=== PATIENT | male | born 1995 | race Two or more races ===

== ENCOUNTER 2019-03-11 09:29 | Observation (INO) ==
[2019-03-11] MEDS ORDERED: PIPERACILL/TAZOBAC CONSULT ACTIVE PRN ×2 (09:54→16:15)
[2019-03-11] MEDS ORDERED: PIPERACILLIN/TAZOBACTAM 3.375 GM/115 ML BAG IV STA (09:54)
[2019-03-11] MEDS ORDERED: SODIUM CHLORIDE 0.9% 1000ML 1,000 ML IV SCH (10:00)
[2019-03-11 10:25] LABS: Basophils # (auto) 0.02 K/uL (0-0.2); Basophils % (auto) 0.2 %; Eosinophils % (auto) 2.1 %; Hematocrit (blood only) 44.8 % (42-52); Hemoglobin 14.9 g/dL (14.0-18.0); Immature Granulocytes # (auto) 0.01 K/uL (0.00-0.02); Immature Granulocytes % (auto) 0.1 %; Lymphocytes # (auto) 1.58 K/uL (1.2-3.4); Lymphocytes % (auto) 16.8 %; Mean Corpuscular Hgb Conc 33.3 g/dL (32-36); Mean Corpuscular Volume 93.3 fL (80-100); Mean Platelet Volume 10.6 fL (7.4-10.4); Monocytes # (auto) 0.81 K/uL (0.11-0.59); Monocytes % (auto) 8.6 %; Neutrophils % (auto) 72.2 %; Platelet Count 226 K/uL (130-400); RDW Coefficient of Variation 12.5 % (11.5-14.5); RDW Standard Deviation 42.6 fL (36.4-46.3); White Blood Count 9.42 K/uL (4.8-10.8)
[2019-03-11 10:35] LABS: iSTAT Creatinine 0.7 mg/dl (0.6-1.3); iSTAT Ionized Calcium 1.11 mmol/l (1.12-1.32); iSTAT Potassium 3.8 mEq/L (3.3-5.0)
[2019-03-11] MEDS ORDERED: IOVERSOL 100ml IV PRN (10:35)
[2019-03-11 10:41] LABS: Albumin Level 3.9 gm/dl (3.4-5.0); BUN Creatinine Ratio 12.6 (10-20); C Reactive Protein 1.96 mg/dl (0-0.29); Calcium 8.9 mg/dl (8.5-10.1); Creatinine Clr Calc Pharmacy 177.3 ml/min; Est GFR (African American) 142.3; Est GFR (Non-African American) 122.8; Potassium 3.8 mmol/L (3.5-5.1)
[2019-03-11 10:44] LABS: Albumin Globulin Ratio 0.9 (0.9-2); Bilirubin,Total 1.2 mg/dl (0.2-1); Globulin 4.2 gm/dl (2.5-4.0); Total Protein 8.1 gm/dl (6.4-8.2)
--- NOTE | 2019-03-11 11:33 | CT Scan Report ---
CT SCAN OF THE PELVIS WITH IV CONTRAST CLINICAL HISTORY: Perineal abscess. COMPARISON STUDY: No priors. TECHNIQUE: Following the IV administration of 94 mL of Optiray 320, CT scan of the pelvis is performe d from the pelvic inlet to the proximal femora. Images are reviewed in the axial, sagittal, and coron al planes. IV contrast was administered without complication. A dose lowering technique was utilized adhering to the principles of ALARA. CT DOSE: 1244.41 mGy.cm FINDINGS: The perianal soft tissues are normal in appearance. There is soft tissue induration with dermal thick ening and mild inflammation identified along the inferior left buttock seen on image #934. This is lo cated along the inferior aspect of the gluteal crease. There is a small gas collection at this site w hich measures 2.2 x 1.4 cm. This is consistent with a small abscess. Additionally, there is a periphe rally enhancing thick-walled fluid collection along the inferior perineal soft tissues in the midline . This is seen on image #883 and measures 2.9 x 4.1 x 1.6 cm. There is mild surrounding inflammatory change, and this is also typical in appearance for abscess. No subcutaneous emphysema is identified. The bladder, prostate, and seminal vesicles are normal in appearance. There is no pelvic sidewall caitlyn nopathy. There are mildly enlarged left inguinal lymph nodes which measure up to 1.3 cm in short axis . Minimal stranding is noted in the left groin. There is no free fluid in the pelvis. The visualized loops of small bowel and colon are normal in caliber. A normal appendix is identified. There is a fat -containing umbilical hernia. The iliac vessels are patent. The bony pelvis is intact. No lytic or blastic lesion is seen. The hip and sacroiliac joints are norm al in appearance. The regional musculature is normal and symmetric. IMPRESSION: 1. There is a 4.1 cm peripherally enhancing fluid collection involving the inferior perineal soft tis sues in the midline. The appearance is typical for a small abscess. 2. There is a second small abscess identified in the inferior left buttock along the gluteal crease w ith evidence of surrounding cellulitis. 3. Mildly enlarged left inguinal lymph nodes with surrounding stranding are likely on a reactive basi s. 4. The perianal soft tissues are normal as imaged. Dictated: 03/11/2019 10:57 AM Transcribed: 03/11/2019 11:29 AM Sapna [id number] [email or web address] Electronically signed by: Anthony Patton M.D. 03/11/2019 11:32 AM
[2019-03-11 12:16] LABS: Appearance Urine Clear (Clear); Bilirubin Urine Negative (Negative); Blood Urine Negative (Negative); Color Urine Yellow; Glucose Urine UA Negative (Negative); Ketones Urine Negative (Negative); Leukocyte Esterase Urine Negative (Negative); Nitrite Urine Negative (Negative); Protein Urine Negative (Negative); Specific Gravity Urine > 1.045 (1.000-1.030); Urobilinogen Urine Negative (Negative)
--- NOTE | 2019-03-11 12:54 | History & Physical Report ---
Date of Service March 11, 2019 Assessment & Plan (1) Perineal abscess: Plan for EUA, I&D of perineal abscess. He has been NPO since last night. History of Present Illness Primary Care Provider: NO PCP 23 y/o male with 2-3 days perineal pain and scrotal swelling with some chills and feverish last night. Was referred to the ED by urgent care. No previous perineal abscesses, IBD or rectal pain. Allergies Allergy/AdvReac Type Severity Reaction Status Date / Time No Known Allergies Allergy Unverified 03/11/19 10:57 Home Medications Home Medications Medication Instructions Recorded Confirmed Type No Known Home Medications 03/11/19 03/11/19 History Past Med/Surg History Social History Feels Safe at Home: Yes Review of Systems Constitutional: + fever and + chills Gastrointestinal: no abdominal pain, no nausea, no vomiting, no change in bowel habits, no change in stools, no constipation, no diarrhea/loose stools and no blood in stools Physical Exam Constitutional: WD/WN, vitals as above Respiratory: normal respiratory effort, lungs clear to auscultation Cardiovascular: RRR, no murmur, no edema Gastrointestinal (Abdomen): Percussion/Palpation: abdomen soft Rectal Exam: + rectal tenderness ( 2x4 cm fluctuant extedning from perianal to scrotal area just left of midl) Results & Data Vital Signs (Past 12 Hours) Vital Signs Temp Pulse Pulse Resp BP BP Pulse Ox 03/11/19 11:41 86 18 109/73 100 03/11/19 11:01 78 16 121/73 99 03/11/19 09:36 36.5 C 104 H 20 146/86 H 96 Supervising Physician Co-Signing Physician Notes This pleasant young gentleman approximate 4 days ago while skating fell on ice skate and developed a lump in the area that progressively got worse he denies any history of GI symptoms his bowels have been more regularly On exam he has approximately 3 cm so hard mass consisting most likely with a hematoma in the upper inner thigh then he has a linear 1 x 4 cm very tender soft tissue mass near the groin crease at the base of the scrotum Recommendation is to examine under anesthesia and incision and drainage of these areas This is very atypical for a primary perianal abscess may be all related to the trauma he does not have GI or symptoms PG Care Time/CCT Total # of Minutes Spent Total Time Spent with Patient: Total time spent is greater than 50% in coordination of care (as documented) at patient's floor/unit and/or counseling patient:
--- NOTE | 2019-03-11 13:08 | Emergency Department Note ---
History of Present Illness General Chief complaint: Rectal Pain Stated complaint: PAINFUL BUMP ON BUTT Source: patient Mode of arrival: ambulatory Limitations: no limitations History of Present Illness Provider Complaint: + abscess/boil Onset (ago): 5 day(s) Tetanus up to date: yes Location: + buttocks and + genitals Severity: moderate Maximum Pain Intensity: 4 Current Pain Intensity: 4 Quality: + sharp Pain Consistency: + constant Exacerbated By: + palpation and + movement Context: + none Associated symptoms: + chills, + nausea and + malaise Treatments prior to arrival: + none HPI narrative: This 23-year-old male patient presents emergency department today, ambulatory, complaining of what he thought to be a pimple on his perineum. He states 4 to 5 days ago, he noticed the pain and pimple, so had been trying to wash it. Over the past 2 to 3 days, he noticed increased pain and induration in the area. He states he left it alone, but yesterday was unable to sit without difficulty. His girlfriend evaluated it yesterday and identified what is likely an abscess between his rectum and scrotum. The kj ent states he had chills and subjective fever yesterday. Vaccinations including tetanus shot are up-to-date. He denies any drainage from the area. He denies any weakness or inability to ambulate. He denied open wounds or recent illness. The patient does report a moderate amount of pain, but declines any pain medication at this time. Home Medications Home Medications Medication Instructions Recorded Confirmed Type No Known Home Medications 03/11/19 03/11/19 History Allergies Allergy/AdvReac Type Severity Reaction Status Date / Time dust Allergy Rash Uncoded 03/11/19 13:51 Past Med/Surg History Medical History No pertinent past medical history Social History Feels Safe at Home: Yes Smoking Status: Never smoker Do You Dip or Chew Tobacco: No ; Hx Alcohol Use: No Hx Substance Use: No Review of Systems A total of 10 systems reviewed and were otherwise negative Physical Exam Vital Signs: Vital Signs - 24 hr 03/11/19 09:36 03/11/19 11:01 03/11/19 11:41 Temperature 36.5 C Temperature Source Oral Pulse Rate 104 H 78 Pulse Rate [Left F dewey] 86 Pulse Rate from Sp O2 Sensor 79 Respiratory Rate 20 16 18 Respiratory Effort / Characteristics Non-Labored Respiratory Depth Normal Blood Pressure 146/86 H 121/73 Blood Pressure [Le ft Arm] 109/73 Blood Pressure Ary n 106 91 Blood Pressure Ary n [Left Arm] 85 Pulse Oximetry 96 99 100 Oxygen Delivery Me thod Room Air Room Air Sepsis Recent Feve r Within 48 Hours No Sepsis Action Take n by Nursing No Action Required 03/11/19 13:04 Temperature Temperature Source Pulse Rate Pulse Rate [Left F dewey] 90 Pulse Rate from Sp O2 Sensor Respiratory Rate 18 Respiratory Effort / Characteristics Respiratory Depth Blood Pressure Blood Pressure [Le ft Arm] 138/96 Blood Pressure Ary n Blood Pressure Ary n [Left Arm] 110 Pulse Oximetry 99 Oxygen Delivery Me thod Room Air Sepsis Recent Feve r Within 48 Hours Sepsis Action Take n by Nursing Physical Exam: VITALS: Vitals are noted on the nurse's note and reviewed by myself. Vital signs stable. GENERAL: This is a 23-year-old male, in no acute distress, nondiaphoretic, well-developed well-nourished. SKIN: Induration from the base of the scrotum extending to the anus on the left side of the perineum. No pointing or discharge. The skin was without rashes, erythema, edema, or bruising. There is no tenting of the skin. Capillary refill less than 2 seconds. HEAD: Normocephalic atraumatic. NECK: Supple without nuchal rigidity. No lymphadenopathy. No thyromegaly. Cervical spine is nontender. No JVD. HEART: Regular rate and rhythm without murmurs gallops or rubs. LUNGS: Clear to auscultation bilaterally without wheezes, rales or rhonchi. No retractions or accessory muscle use. ABDOMEN: Positive bowel sounds x 4. Normal tympanic percussion. Soft, nontender, without masses or organomegaly. Steinberg sign negative. No guarding or rebound tenderness. MUSCULOSKELETAL: No muscle atrophy, erythema, or edema noted. Full range of motion without joint tenderness in all extremities. No tenderness to palpation. Normal gait. Strength 5/5 throughout. NEURO: Patient was alert and oriented to person place and time. No focal neurological deficits. Course The patient was seen and evaluated as above. IV access obtained, labs drawn. Patient medicated with IV fluids and Zosyn. He was offered analgesics and declined. Imaging performed and reviewed by myself and radiologist as above. Labs reviewed by myself. I discussed the findings with the patient at bedside. I discussed the case with my attending. I discussed the case with the general surgery team. I spoke with Carlos A Almonte PA-C. He did agree to see and evaluate the patient. I discussed the case with Dr. Zhang. He will take the patient to the OR for I&D. I asked if he would like any further antibiotics and he declined at this time. Please see surgery dictation regarding ongoing management care of this patient. Administered Medications Ioversol (Optiray 320 100ml) 94 ml IV ONCE PRN PRN Reason: Interaction Checking Stop: 03/15/19 10:34 Last Admin: 03/11/19 10:36 Dose: 94 ml Documented by: [id number] Discontinued Medications Sodium Chloride (Nss 1000ml) 1,000 mls @ 999 mls/hr IV .Q1H1M MALIK Stop: 03/11/19 11:00 Last Infusion: 03/11/19 11:40 Dose: 0 mls/hr Documented by: [id number] Admin: 03/11/19 10:26 Dose: 999 mls/hr Documented by: [id number] Piperacillin Sod/Tazobactam Sod (Zosyn) 3.375 gm in 115 mls @ 230 mls/hr IV NOW STA Stop: 03/11/19 10:23 Last Infusion: 03/11/19 10:58 Dose: 0 mls/hr Documented by: [id number] Admin: 03/11/19 10:26 Dose: 230 mls/hr Documented by: [id number] Medical Decision Making Differential Diagnosis + abscess of skin or subcutaneous tissue, + viral exanthem, + dermatophytosis, + urticaria, + herpes zoster, + allergic reaction to drug, + cellulitis, + eczema, + insect bites, + impetigo, + contact dermatitis, + cellulitis, + necrotizing fasciitis ((Alexander's gangrene)), + foreign body, + dermatitis and + drug eruption Home Medications Current Medication List: was personally reviewed by me Laboratory Data Attestation: I reviewed the patient's lab results. No leukocytosis, anemia, thrombocytopenia. Renal, hepatic function, and electrolytes without significant abnormality. Lactate 2.0. Urinalysis negative for blood or infection. Result diagrams: 03/11/19 10:12 03/11/19 10:12 Lab Results 03/11/19 03/11/19 03/11/19 Range/Units 10:12 10:12 10:12 WBC 9.42 (4.8-10.8) K/uL RBC 4.80 (4.7-6.1) M/uL Hgb 14.9 (14.0-18.0) g/dL POC Hgb (14.0-18.0) g/dl Hct 44.8 (42-52) % POC Hct (42-52) % MCV 93.3 (80-100) fL MCH 31.0 (25-34) pg MCHC 33.3 (32-36) g/dL RDW Std Deviation 42.6 (36.4-46.3) fL RDW Coeff of Alexys 12.5 (11.5-14.5) % Plt Count 226 (130-400) K/uL MPV 10.6 H (7.4-10.4) fL Immature Gran % (Auto) 0.1 % Neut % (Auto) 72.2 % Lymph % (Auto) 16.8 % [place] % (Auto) 8.6 % Eos % (Auto) 2.1 % Baso % (Auto) 0.2 % Immature Gran # (Auto) 0.01 (0.00-0.02) K/uL Neut # (Auto) 6.80 H (1.4-6.5) K/uL Lymph # (Auto) 1.58 (1.2-3.4) K/uL [place] # (Auto) 0.81 H (0.11-0.59) K/uL Eos # (Auto) 0.20 (0-0.5) K/uL Baso # (Auto) 0.02 (0-0.2) K/uL POC Sodium (135-144) mEq/L Sodium 139 (136-145) mmol/L POC Potassium (3.3-5.0) mEq/L Potassium 3.8 (3.5-5.1) mmol/L POC Chloride (101-112) mEq/L Chloride 106 (98-107) mmol/L Carbon Dioxide 28 (21-32) mmol/L POC Total CO2 (24-31) mEq/l Anion Gap 5.0 (3-11) POC Anion Gap (16-25) mmol/L POC BUN (7-18) mg/dl BUN 11 (7-18) mg/dl Creatinine 0.85 (0.6-1.4) mg/dl POC Creatinine (0.6-1.3) mg/dl Est Cr Clr Drug Dosing 177.3 ml/min Est GFR ( Amer) 142.3 Est GFR (Non-Af Amer) 122.8 BUN/Creatinine Ratio 12.6 (10-20) Glucose 101 H (70-99) mg/dl POC Glucose (other) (70-99) mg/dl POC Lactic Acid Lukas (0.90-1.70) mmol/L Lactate 2.0 (0.4-2.0) mmol/L Calcium 8.9 (8.5-10.1) mg/dl POC Ioniz Calcium [place] (1.12-1.32) mmol/l Total Bilirubin 1.2 H (0.2-1) mg/dl AST 35 (15-37) U/L ALT 107 H (12-78) U/L Alkaline Phosphatase 82 (45-117) U/L C-Reactive Protein 1.96 H (0-0.29) mg/dl Total Protein 8.1 (6.4-8.2) gm/dl Albumin 3.9 (3.4-5.0) gm/dl Globulin 4.2 H (2.5-4.0) gm/dl Albumin/Globulin Ratio 0.9 (0.9-2) Urine Color Urine Appearance (Clear) Urine pH (4.5-7.5) Ur Specific [place] (1.000-1.030) Urine Protein (Negative) Urine Glucose (UA) (Negative) Urine Ketones (Negative) Urine Blood (Negative) Urine Nitrite (Negative) Urine Bilirubin (Negative) Urine Urobilinogen (Negative) Ur Leukocyte Esterase (Negative) 03/11/19 03/11/19 03/11/19 Range/Units 10:18 10:21 11:50 WBC (4.8-10.8) K/uL RBC (4.7-6.1) M/uL Hgb (14.0-18.0) g/dL POC Hgb 15.0 (14.0-18.0) g/dl Hct (42-52) % POC Hct 44 (42-52) % MCV (80-100) fL MCH (25-34) pg MCHC (32-36) g/dL RDW Std Deviation (36.4-46.3) fL RDW Coeff of Alexys (11.5-14.5) % Plt Count (130-400) K/uL MPV (7.4-10.4) fL Immature Gran % (Auto) % Neut % (Auto) % Lymph % (Auto) % [place] % (Auto) % Eos % (Auto) % Baso % (Auto) % Immature Gran # (Auto) (0.00-0.02) K/uL Neut # (Auto) (1.4-6.5) K/uL Lymph # (Auto) (1.2-3.4) K/uL [place] # (Auto) (0.11-0.59) K/uL Eos # (Auto) (0-0.5) K/uL Baso # (Auto) (0-0.2) K/uL POC Sodium 140 (135-144) mEq/L Sodium (136-145) mmol/L POC Potassium 3.8 (3.3-5.0) mEq/L Potassium (3.5-5.1) mmol/L POC Chloride 103 (101-112) mEq/L Chloride (98-107) mmol/L Carbon Dioxide (21-32) mmol/L POC Total CO2 26 (24-31) mEq/l Anion Gap (3-11) POC Anion Gap 16.0 (16-25) mmol/L POC BUN 10 (7-18) mg/dl BUN (7-18) mg/dl Creatinine (0.6-1.4) mg/dl POC Creatinine 0.7 (0.6-1.3) mg/dl Est Cr Clr Drug Dosing ml/min Est GFR ( Amer) Est GFR (Non-Af Amer) BUN/Creatinine Ratio (10-20) Glucose (70-99) mg/dl POC Glucose (other) 104 H (70-99) mg/dl POC Lactic Acid Lukas 1.81 H (0.90-1.70) mmol/L Lactate (0.4-2.0) mmol/L Calcium (8.5-10.1) mg/dl POC Ioniz Calcium [place] 1.11 L (1.12-1.32) mmol/l Total Bilirubin (0.2-1) mg/dl AST (15-37) U/L ALT (12-78) U/L Alkaline Phosphatase (45-117) U/L C-Reactive Protein (0-0.29) mg/dl Total Protein (6.4-8.2) gm/dl Albumin (3.4-5.0) gm/dl Globulin (2.5-4.0) gm/dl Albumin/Globulin Ratio (0.9-2) Urine Color Yellow Urine Appearance Clear (Clear) Urine pH 7.0 (4.5-7.5) Ur Specific [place] > 1.045 H (1.000-1.030) Urine Protein Negative (Negative) Urine Glucose (UA) Negative (Negative) Urine Ketones Negative (Negative) Urine Blood Negative (Negative) Urine Nitrite Negative (Negative) Urine Bilirubin Negative (Negative) Urine Urobilinogen Negative (Negative) Ur Leukocyte Esterase Negative (Negative) Imaging Data Radiologist's Impression: CT SCAN OF THE PELVIS WITH IV CONTRAST CLINICAL HISTORY: Perineal abscess. COMPARISON STUDY: No priors. TECHNIQUE: Following the IV administration of 94 mL of Optiray 320, CT scan of the pelvis is performed from the pelvic inlet to the proximal femora. Images are reviewed in the axial, sagittal, and coronal planes. IV contrast was administered without complication. A dose lowering technique was utilized adhering to the principles of ALARA. CT DOSE: 1244.41 mGy.cm FINDINGS: The perianal soft tissues are normal in appearance. There is soft tissue induration with dermal thickening and mild inflammation identified along the inferior left buttock seen on image #934. This is located along the inferior aspect of the gluteal crease. There is a small gas collection at this site which measures 2.2 x 1.4 cm. This is consistent with a small abscess. Additionally, there is a peripherally enhancing thick-walled fluid collection along the inferior perineal soft tissues in the midline. This is seen on image #883 and measures 2.9 x 4.1 x 1.6 cm. There is mild surrounding inflammatory change, and this is also typical in appearance for abscess. No subcutaneous emphysema is identified. The bladder, prostate, and seminal vesicles are normal in appearance. There is no pelvic sidewall adenopathy. There are mildly enlarged left inguinal lymph nodes which measure up to 1.3 cm in short axis. Minimal stranding is noted in the left groin. There is no free fluid in the pelvis. The visualized loops of small bowel and colon are normal in caliber. A normal appendix is identified. There is a fat-containing umbilical hernia. The iliac vessels are patent. The bony pelvis is intact. No lytic or blastic lesion is seen. The hip and sacroiliac joints are normal in appearance. The regional musculature is normal and symmetric. IMPRESSION: 1. There is a 4.1 cm peripherally enhancing fluid collection involving the inferior perineal soft tissues in the midline. The appearance is typical for a small abscess. 2. There is a second small abscess identified in the inferior left buttock along the gluteal crease with evidence of surrounding cellulitis. 3. Mildly enlarged left inguinal lymph nodes with surrounding stranding are likely on a reactive basis. 4. The perianal soft tissues are normal as imaged. Dictated: 03/11/2019 10:57 AM Transcribed: 03/11/2019 11:29 AM Sapna [id number] [email or web address] Electronically signed by: Anthony Patton M.D. 03/11/2019 11:32 AM Blood Pressure Blood Pressure Findings: Elevated blood pressure Blood Pressure Disposition: elevated BP felt to be situational MDM Narrative This 23-year-old male patient presents emergency department today due to a perineal abscess. The patient is afebrile, but does report subjective fever and chills. There is no pointing or drainage of the abscess and due to the location and symptoms, I am concerned for possible early or developing Fornier's gangrene or necrotizing fasciitis. Given the location and symptoms, I did contact the general surgeon on-call. They did agree to see and evaluate the patient. The patient will ultimately be taken to the OR for I&D of the abscess. He was given IV Zosyn while here in the emergency department. Please see surgery dictation regarding ongoing management care of this patient. The chart was completed utilizing [employer] voice recognition software. Grammatical errors, random word insertions, pronoun errors, and incomplete sentences are an occasional consequence of this system due to software limitations, ambient noise, and hardware issues. Any formal questions or concerns about the content, text, or information contained within the body of this dictation should be directly addressed to the provider for clarification. Impression & Plan Perineal abscess Discharge Plan Visit Data *Final* Discharge Date/Time: 03/11/19 13:45 Chief Complaint: Rectal Pain Stated Complaint: PAINFUL BUMP ON BUTT ED Provider: Daryl Ramirez ED Midlevel Provider: Nel Larios Discharge Problem: Perineal abscess Patient Disposition: Still a Patient Condition: Good
[2019-03-11] MEDS ORDERED: PROPOFOL IV EMULSION 10 MG/ML 20 ML VIAL IV ONE (13:49)
[2019-03-11] MEDS ORDERED: LIDOCAINE HCL 2% 2 ML VIAL/AMP(20MG/ML) INFIL ONE (13:49)
[2019-03-11] MEDS ORDERED: fentaNYL citrate 100 MCG/2 ML VIAL ONE ×3 (13:49→14:38)
[2019-03-11] MEDS ORDERED: MIDAZOLAM HCL 1 MG/ML 2ML VIAL ONE (13:49)
[2019-03-11] MEDS ORDERED: ONDANSETRON INJ 2 MG/ML 2 ML VIAL IV PRN ×2 (13:51→16:15)
[2019-03-11] MEDS ORDERED: ePHEDrine sulfate 50 MG/ML AMP IV PRN (13:51)
[2019-03-11] MEDS ORDERED: HYDROmorphone INJ 1 MG/ML SYRINGE IV PRN (13:51)
[2019-03-11] MEDS ORDERED: ATROPINE SULFATE 0.1 MG/ML 10ML SYR IV PRN (13:51)
--- NOTE | 2019-03-11 13:53 | Anesthesiology Consultation ---
Date of Service March 11, 2019 Assessment & Plan (1) Encounter for pre-operative examination: Chart Review Chart Review: Acceptable Risk for Surgery and Patient NOT seen in Pre Admission Testing Consults Requested none History Surgery Operation Date: 03/11/19 12:40 Proposed Procedures p Incision and Drainage Perineal Abscess - Glen Bales MD Height/Weight Height: 6 ft 1 in Weight: 112 kg Allergies Allergy/AdvReac Type Severity Reaction Status Date / Time dust Allergy Rash Uncoded 03/11/19 13:51 Medications Home Medications Medication Instructions Recorded Confirmed Last Taken No Known Home Medications 03/11/19 03/11/19 Unknown Active Medications Generic Name Dose Route Start Last Admin Trade Name Freq PRN Reason Stop Dose Admin Ioversol 94 ml 03/11/19 10:35 03/11/19 10:36 Optiray 320 100ml IV 03/15/19 10:34 94 ml ONCE PRN Administration Interaction Checking NPO Date Last Intake of Fluids: 03/11/19 Time Last Intake of Fluids: 06:00 Last Intake of Fluids Comment: Sip water Date Last Intake of Solids: 03/10/19 Time Last Intake of Solids: 21:00 Past Medical History Medical History No pertinent past medical history Exercise / Class Metabolic Activity II 4-5 Yardwork/Stairs/Walk up hill Past Surgical History none Past Anesthesia History No Hx of Anesthesia Complications and No Family Hx of Anesthesia Complications History of PONV No Hx of PONV and No Hx of Motion Sickness Social History Smoking Status: Never smoker Do You Dip or Chew Tobacco: No Hx Alcohol Use: No Hx Substance Use: No Physical Exam Vital Signs Last Vital Signs Temp 36.9 C 03/11/19 13:45 Pulse 100 H 03/11/19 13:45 Resp 18 03/11/19 13:45 BP 146/92 H 03/11/19 13:45 Pulse Ox 97 03/11/19 13:45 Testing Laboratory Results 03/11/19 10:12 03/11/19 10:12 Urine Color Yellow 03/11/19 11:50 Urine Appearance Clear (Clear) 03/11/19 11:50 Urine pH 7.0 (4.5-7.5) 03/11/19 11:50 Ur Specific [place] > 1.045 (1.000-1.030) H 03/11/19 11:50 Urine Protein Negative (Negative) 03/11/19 11:50 Urine Glucose (UA) Negative (Negative) 03/11/19 11:50 Urine Ketones Negative (Negative) 03/11/19 11:50 Urine Nitrite Negative (Negative) 03/11/19 11:50 Ur Leukocyte Esterase Negative (Negative) 03/11/19 11:50 03/11/19 10:21 POC Glucose (other) 104 H
[2019-03-11] MEDS ORDERED: BUPIVACAINE 0.5 % 5 MG/1 ML MPF 30ML VIAL ONE (13:56)
[2019-03-11] MEDS ORDERED: EPINEPHrine INJ 1 MG/ML AMP ONE (13:56)
[2019-03-11] MEDS ORDERED: ONDANSETRON INJ 2 MG/ML 2 ML VIAL ONE (14:15)
[2019-03-11] MEDS ORDERED: DEXAMETHASONE SOD INJ 4 MG/ML VIAL ONE (14:15)
--- NOTE | 2019-03-11 14:44 | Post Operative Brief Note ---
PG Immediate Post Op with CF Date of Surgery March 11, 2019 Pre & Post Diagnosis Operation Date: 03/11/19 12:40 Pre-Op Diagnosis: Perineal abscess Post-Op Diagnosis: Perineal abscess I identified the patient and participated in the time-out.: Yes Procedure Operation Date: 03/11/19 12:40 Actual Procedures p Incision and Drainage Perianal Scrotal Hematoma; Incision and Drainage Left Buttock Upper Thigh - Glen Bales MD Surgeon Glen Bales MD [employer] b meenu warner Estimated Blood Loss 30 Findings Consistent with Post-Op Diagnosis Specimens Specimen Description: Culture #1- Left gluteal abscess Culture #2- Perineal abscess
--- NOTE | 2019-03-11 15:01 | Operative Report ---
PG Post Operative Report Pre & Post Diagnosis Operation Date: 03/11/19 12:40 Pre-Op Diagnosis: Perineal abscess Post-Op Diagnosis: Perineal abscess I identified the patient and participated in the time-out.: Yes Procedure Operation Date: 03/11/19 12:40 Actual Procedures p Incision and Drainage Perianal Scrotal Hematoma; Incision and Drainage Left Bu ttock Upper Thigh - Glen Bales MD The patient was brought into the operating theater general LMA anesthesia placed in lithotomy position the scrotum perianal area was prepped and draped using Betadine solution a timeout was had patient was identified had received preoperative antibiotics in the ER An area in the left upper thigh adjacent to the and away from the anal canal approximately a centimeter and a half was easily appreciated again it was nontender but hard and another area that extended away from the anal skin canal but extended up into the lower aspect of the left scrotal sac our initial incision was made in the approximately 2 cm indurated area in the thigh made about an inch incision immediately some purulent drainage was appreciated cultures were taken. After accomplished this we used a new knife and set to incise and makes a 1-1/2 inch incision in the area that was more tender at the bottom of the scrotal area in a linear fashion away from the anal canal and the anal tissue medially a significant amount of blood was appreciated to use as well the nature did not appear to be purulent in nature I extended the incision house wirer to make sure that we had drained the area and used a hemostat and found no other pockets except the skin and subcutaneous tissue that was quite vascular we controlled all this area use electrocautery then I elected to pack this with quarter inch plain gauze using 3-0 nylon skin sutures to hold it in place another piece of quarter-inch was used to pack the initial incision and drainage 4 x 4 and a dressing was applied procedure was tolerated well by the patient estimated blood loss 30 cc addendDeandre BURGESS was present throughout the procedure and aided with retraction exposure and dressing Surgeon Glen Bales MD Worship Director vince burgess Estimated Blood Loss 30 Findings Consistent with Post-Op Diagnosis Specimens c and s abscess cavity Description of Procedure merda I attest to the content of the Intraoperative Record and any orders documented therein. Any exceptions are noted below. Supervising Physician Co-Signing Physician Notes This pleasant young gentleman approximate 4 days ago while skating fell on ice skate and developed a lump in the area that progressively got worse he denies any history of GI symptoms his bowels have been more regularly On exam he has approximately 3 cm so hard mass consisting most likely with a hematoma in the upper inner thigh then he has a linear 1 x 4 cm very tender soft tissue mass near the groin crease at the base of the scrotum Recommendation is to examine under anesthesia and incision and drainage of these areas This is very atypical for a primary perianal abscess may be all related to the trauma he does not have GI or symptoms
--- NOTE | 2019-03-11 15:20 | Anesthesiology Progress Note ---
Date of Service March 11, 2019 Anesthesia Post Procedure Vital Signs Vital Signs: Temp Pulse Pulse Pulse Resp BP BP 03/11/19 15:13 88 24 136/90 03/11/19 15:00 87 21 130/89 03/11/19 14:53 36.5 C 97 H 21 123/87 03/11/19 13:45 36.9 C 100 H 18 146/92 H 03/11/19 13:34 70 18 125/89 03/11/19 13:04 90 18 138/96 03/11/19 11:41 86 18 109/73 03/11/19 11:01 78 16 121/73 03/11/19 09:36 36.5 C 104 H 20 146/86 H Pulse Ox 03/11/19 15:13 100 03/11/19 15:00 100 03/11/19 14:53 96 03/11/19 13:45 97 03/11/19 13:34 97 03/11/19 13:04 99 03/11/19 11:41 100 03/11/19 11:01 99 03/11/19 09:36 96 Pain Intensity Scrotal: Pain Intensity: 8 Perineal: Pain Intensity: 2 Transfer of Care Handoff Completed per policy Notes Mental Status: alert / awake / arousable and participated in evaluation Patient Amnestic to Procedure: Yes Nausea / Vomiting: adequately controlled Pain: adequately controlled Airway Patency, RR, SpO2: stable & adequate BP & HR: stable & adequate Hydration State: stable & adequate Anesthetic Complications: no major complications apparent and Pt Satisfied with anesthetic care
[2019-03-11] MEDS: fentaNYL citrate 100 MCG/2 ML VIAL IV PRN ×2 (15:21→15:29)
[2019-03-11] MEDS ORDERED: MoRPHine SULFATE 4 MG/ML 1 ML CARP\\VIAL IV PRN (16:15)
[2019-03-11] MEDS ORDERED: OXYCODONE/ACETAMINOPHEN 5mg/325mg TAB PO PRN (16:15)
[2019-03-11] MEDS ORDERED: MoRPHine SULFATE 2 MG/ML CARP IV PRN ×2 (16:15)
[2019-03-11] MEDS: PIPERACILLIN/TAZOBACTAM 3.375 GM in DEXTROSE 5% 100 ML IV SCH (18:06)
[2019-03-12] MEDS: PIPERACILLIN/TAZOBACTAM 3.375 GM in DEXTROSE 5% 100 ML IV SCH ×2 (01:40→10:01)
--- NOTE | 2019-03-12 08:14 | Surgery Progress Note ---
Date of Service March 12, 2019 Assessment & Plan (1) Perineal abscess: POD 1 I&D packing removed from inner thigh and perineal area cultures pending, no organisms on gram stain d/c home on Bactrim, no further packing needed seen with Dr. Bales Subjective no complaints Physical Exam Genitourinary: less induration perineal area, packing in place Results & Data Vital Signs (Past 12 Hours) Vital Signs Temp Pulse Pulse Resp BP Pulse Ox 03/12/19 07:00 36.6 C 75 18 132/77 97 03/12/19 04:29 36.5 C 70 16 123/80 96 03/11/19 23:09 36.5 C 90 16 122/74 95 PG Care Time/CCT Total # of Minutes Spent Total Time Spent with Patient: Total time spent is greater than 50% in coordination of care (as documented) at patient's floor/unit and/or counseling patient:
--- NOTE | 2019-03-20 08:46 | Discharge Summary ---
Date of Service March 20, 2019 Admission HPI Per Admitting Provider 23 y/o male with 2-3 days perineal pain and scrotal swelling with some chills and feverish last night. Was referred to the ED by urgent care. No previous perineal abscesses, IBD or rectal pain. Principal Diagnosis Perineal abscess Discharge Data Allergies Allergy/AdvReac Type Severity Reaction Status Date / Time dust Allergy Rash Uncoded 03/11/19 13:51 Consultations 03/11/19 12:34 Consult General Surgery Stat Procedures Performed Operation Date: 03/11/19 12:40 Actual Procedures p Incision and Drainage Perianal Scrotal Hematoma; Incision and Drainage Left Buttock Upper Thigh - Glen Bales MD Ordered Studies 03/11/19 09:54 CT pelvis w/IV con only Stat Hospital Course (1) Perineal abscess: 23 y/o male c/o perineal pain and swelling after falling while ice skati ng. He was taken to the OR for drainage of left buttock/thigh abscess and perineal hematoma/abscess. The wounds were packed with nu-gauze and he was kept overnight for IV antibiotics. Packing was removed in the morning. Erythema and induration had improved. No further packing was necessary. He was stable for discharge on oral antibiotics. Total Time Total Time Spent Total Time Spent (In Minutes): 10 Discharge Plan Discharge Items Patient Disposition: Home - Self-Care Reason For Visit: PAINFUL BUMP ON BUTT Discharge Diagnosis: incision and drainage of perineal abscess/hematoma Condition on Discharge: Good Activity: Per Instructions section Lifting: No more than 25 pounds Bathing Comment: may shower Exercise/Sports: Wait until after follow-up appointment Driving/Machine Use: Resume 3 days after discharge Non-emergency contact: Surgeon Call non-emergency contact if: you have any medication questions, your symptoms worsen, your pain is not controlled, your pain is worsening, you have a fever, your temperature is above 101.5, your wound has increased redness and your wound has increased drainage Follow-up/Referrals: Glen Bales MD [Surgeon] - (Please call to schedule follow up in clinic within 1 week.) PCP,NO [Primary Care Provider] - Diet: Regular Addtl Attending Provider Instructions: You may perform dressing changes as needed with gauze or peripad as needed. Please complete your full course of antibiotic prescribed to you Pending Studies at Discharge: No Stand-Alone Forms: My [facility], Opioid Pain Management Medications and DC Order Prescriptions: New oxycodone-acetaminophen [Percocet] 5-325 mg tablet 1 - 2 tab PO .every 4-6 hours PRN (Reason: pain, for initial therapy. max 8 per day) Qty: 15 RF: 0 No Action No Known Home Medications RF: 0 Discharge Orders: Discharge Order (Routine); Ordered 03/12/19 Ordered By: Johanna Rodriguez/Other Patient Handouts: Oxycodone Hydrochloride Acetaminophen Oral tablet Admission Data Admit Date/Time: 03/11/19 14:59 Attending Provider: Glen Bales Admit Provider: Glen Bales Primary Care Provider: PCP,NO Other Providers: Glen Bales Other Interventions: Discharge Summary Assessment (RN) Last Done: 03/12/19 10:01 DC Date/Time DO NOT enter until pt leaves facility: 03/12/19 11:09
== END 2019-03-12 11:09 | disposition home or self-care (01) ==
LOC: ED 09:29 → ASU 13:34 → 3W 13:34